=== PATIENT | female | born 1970 | race Caucasian/White ===

== ENCOUNTER 2017-07-20 20:53 | Inpatient (IN) | payer OTHER ==
[~2017-07-20] VITALS: Ht 165.1 cm; Wt 57.2 kg
[~2017-07-20 20:53] MED LIST: EFFEXOR XR150 MG PO; FLOVENT 11120 INHALA IH; LEVOFLOXACIN750 MG PO; METHADONE10 MG/1 M1 PO; NICOTINE PATCH1 EAC1 TD; PROAIR HFA8.5 GM IH; SEROQUEL100 MG PO; TYLENOL EXTRA500 MG PO; VISTARIL50 MG PO; WELLBUTRIN75 MG PO; ZOFRAN4 MG PO
[2017-07-20 22:20] LABS: ADD MIUA? YES; BILIRUBIN NEGATIVE; BLOOD NEGATIVE; COLOR YELLOW ((YELLOW)); GLUCOSE (STRIP) NEGATIVE; KETONES NEGATIVE; LEUKOCYTES MODERATE; NITRITE NEGATIVE; PROTEIN (STRIP) NEGATIVE; SPECIFIC GRAVITY 1.025 (1.000-1.030); UROBILINOGEN 0.2 MG/DL (0.2-1.0)
[2017-07-20 22:26] LABS: BACTERIA RARE /HPF; CALCIUM OXALATE CRYSTALS 1+ /HPF; EPITHELIAL CELLS 1+ /HPF; MUCUS TRACE /LPF; UCUL ADDED? YES; WHITE BLOOD CELLS 15-20 /HPF (0-5)
[2017-07-20 22:43] LABS: EOSINOPHIL (%) 2.4 % (0-5); EOSINOPHIL COUNT 0.2 K/uL (0-0.3); HEMATOCRIT 37.6 % (36.0-46.0); IMMATURE GRANULOCYTE (%) 0.3 % (0.0-0.7); INSTRUMENT ABS NEUTROPHIL CT 5.9 K/uL; LYMPHOCYTE COUNT 2.1 K/uL (1.0-2.8); MEAN PLAT.VOLUME 9.9 uM^3 (9.5-12.4); MONOCYTE (%) 5.9 % (3-12); MONOCYTE COUNT 0.5 K/uL (0-0.8); NEUTROPHIL (%) 66.9 % (45-76); NEUTROPHIL COUNT 5.9 K/uL (1.8-6.4); PLATELET COUNT 197 K/uL (156-360); RBC DIS.WIDTH-CV 13.3 % (11.8-14.6); RBC DIS.WIDTH-SD 44.6 % (39-53); RED BLOOD COUNT 4.13 M/uL (3.80-5.20); WHITE BLOOD COUNT 8.8 K/uL (4.1-10.2)
[2017-07-20 22:51] LABS: CHLORIDE 102 mEq/L (99-109); POTASSIUM 4.2 mEq/L (3.7-5.4); SODIUM 138 mEq/L (136-147)
[2017-07-20 22:53] LABS: GLUCOSE 83 mg/dL (70-99)
[2017-07-20 22:54] LABS: ANION GAP 15 MEQ/L (2-14)
[2017-07-20 22:57] LABS: GFR ESTIMATE (CALCULATED) > 59 mL/min/
[2017-07-20 22:58] LABS: UREA NITROGEN (BUN) 15 mg/dL (9-23)
[2017-07-21 05:44] LABS: AMPHETAMINE NEGATIVE (500 ng/mL); BARBITURATES NEGATIVE (200 ng/mL); BENZODIAZEPINES NEGATIVE (150 ng/mL); COCAINE NEGATIVE (150 ng/mL); INTERNAL CONTROLS VALID? YES; METHADONE NEGATIVE (200 ng/mL); METHAMPHETAMINE NEGATIVE (500 ng/mL); OPIATES (MORPHINE) PRESUMPTIVE POSITIVE (100 ng/mL); OXYCODONE NEGATIVE (100 ng/mL); PHENCYCLIDINE NEGATIVE (25 ng/mL); PROPOXYPHENE NEGATIVE (300 ng/mL); THC CANNABINOIDS NEGATIVE (50 ng/mL); TRICYCLIC ANTIDEPRESSANTS NEGATIVE (300 ng/mL)
[2017-07-21 07:04] LABS: ADD MEDTOX COMMENT Y
[2017-07-21] MEDS ORDERED: XANAX0.5 MG PO (08:17)
[2017-07-21] MEDS ORDERED: SUBOXONE 8 MG-1 EAC2 SL (08:19)
[2017-07-21] MEDS ORDERED: WELLBUTRIN XL300 MG PO (09:25)
[2017-07-21 16:04] VITALS: BP 101/63
[2017-07-21 20:00] VITALS: BP 105/70
[2017-07-21 21:14] LABS: METH RESISTANT S AUREUS PCR NEGATIVE (NEGATIVE)
[2017-07-21 21:18] LABS: PROBE CHECK PASS; SPECIMEN PROCESSING CONTROL PASS
[2017-07-21 23:20] VITALS: BP 109/60
[2017-07-22 04:00] VITALS: BP 98/57
[2017-07-22 06:17] LABS: EOSINOPHIL (%) 3.8 % (0-5); EOSINOPHIL COUNT 0.2 K/uL (0-0.3); HEMATOCRIT 37.2 % (36.0-46.0); IMMATURE GRANULOCYTE (%) 0.2 % (0.0-0.7); INSTRUMENT ABS NEUTROPHIL CT 2.7 K/uL; LYMPHOCYTE COUNT 1.5 K/uL (1.0-2.8); MCH 29.7 PG (29.0-34.0); MCHC 31.7 G/DL (30.0-36.0); MCV 93.7 FL (83-99); MEAN PLAT.VOLUME 9.9 uM^3 (9.5-12.4); MONOCYTE (%) 8.3 % (3-12); MONOCYTE COUNT 0.4 K/uL (0-0.8); NEUTROPHIL (%) 56.9 % (45-76); NEUTROPHIL COUNT 2.7 K/uL (1.8-6.4); PLATELET COUNT 150 K/uL (156-360); RBC DIS.WIDTH-CV 13.1 % (11.8-14.6); RBC DIS.WIDTH-SD 45.1 % (39-53); RED BLOOD COUNT 3.97 M/uL (3.80-5.20); WHITE BLOOD COUNT 4.8 K/uL (4.1-10.2)
[2017-07-22 06:47] LABS: ANION GAP 7 MEQ/L (2-14); CHLORIDE 108 MEQ/L (99-109); GFR ESTIMATE (CALCULATED) > 59 mL/min/; GLUCOSE 86 mg/dL (70-99); MAGNESIUM 1.8 mg/dl (1.3-2.7); POTASSIUM 4.3 MEQ/L (3.7-5.4); SAMPLE HEMOLYSIS CHECK 0; SAMPLE ICTERIC CHECK 0; SAMPLE LIPEMIA CHECK 0; SODIUM 140 MEQ/L (136-147); UREA NITROGEN (BUN) 11 mg/dL (9-23)
[2017-07-22 08:23] VITALS: BP 99/59
[2017-07-22 12:18] VITALS: BP 101/67
[2017-07-22 15:29] VITALS: BP 100/68
[2017-07-22 20:00] VITALS: BP 112/77
[2017-07-22 23:13] VITALS: BP 84/48
[2017-07-23 03:25] VITALS: BP 108/63
[2017-07-23 06:07] LABS: EOSINOPHIL (%) 4.3 % (0-5); EOSINOPHIL COUNT 0.2 K/uL (0-0.3); HEMATOCRIT 34.5 % (36.0-46.0); IMMATURE GRANULOCYTE (%) 0.4 % (0.0-0.7); INSTRUMENT ABS NEUTROPHIL CT 2.6 K/uL; LYMPHOCYTE COUNT 1.7 K/uL (1.0-2.8); MCV 90.8 FL (83-99); MEAN PLAT.VOLUME 9.9 uM^3 (9.5-12.4); MONOCYTE (%) 8.4 % (3-12); MONOCYTE COUNT 0.4 K/uL (0-0.8); NEUTROPHIL (%) 52.5 % (45-76); NEUTROPHIL COUNT 2.6 K/uL (1.8-6.4); PLATELET COUNT 175 K/uL (156-360); RBC DIS.WIDTH-CV 13.1 % (11.8-14.6); RBC DIS.WIDTH-SD 43.5 % (39-53); WHITE BLOOD COUNT 4.9 K/uL (4.1-10.2)
[2017-07-23 06:26] LABS: INTER. NORMALIZED RATIO 1.1; PROTHROMBIN TIME 11.8 SEC (10.2-12.9)
[2017-07-23 06:27] LABS: ANION GAP 8 MEQ/L (2-14); CHLORIDE 106 MEQ/L (99-109); GFR ESTIMATE (CALCULATED) > 59 mL/min/; GLUCOSE 78 mg/dL (70-99); MAGNESIUM 1.8 mg/dl (1.3-2.7); POTASSIUM 4.3 MEQ/L (3.7-5.4); SAMPLE HEMOLYSIS CHECK 0; SAMPLE ICTERIC CHECK 0; SAMPLE LIPEMIA CHECK 0; SODIUM 140 MEQ/L (136-147); UREA NITROGEN (BUN) 11 mg/dL (9-23)
[2017-07-23 06:29] LABS: PTT 36.5 SEC (25-37)
[2017-07-23 07:45] VITALS: BP 100/63
[2017-07-23 11:20] VITALS: BP 105/60
[2017-07-23 15:29] VITALS: BP 109/61
[2017-07-23 19:45] VITALS: BP 110/71
[2017-07-23 23:23] VITALS: BP 90/51
[2017-07-24 05:10] VITALS: BP 95/57
[2017-07-24 08:00] VITALS: BP 98/58
[2017-07-24 11:10] VITALS: BP 112/71
[2017-07-24] MEDS ORDERED: AUGMENTIN875 MG PO (11:22)
[2017-07-24] MEDS ORDERED: BACTRIM,SEPT1 TABLET PO (11:22)
[2017-07-24 16:08] VITALS: BP 113/69
[2017-07-24 16:55] VITALS: BP 102/72
== END 2017-07-24 20:10 | disposition home or self-care (01) | DRG 607 ==
LOC: EME 20:53 → RME 20:53 → EDOF 07-21 03:00 → ENRESERV 07-21 03:08 → 5WEST 07-21 14:44 → CANRESERV 07-21 16:09 → ENRESERV 07-21 16:09 → 5WEST 07-24 20:10
PROVIDERS: Internal Medicine; Physician Assistant Medical; Radiology Diagnostic Radiology
PROC: 0WB83ZX Excision of Chest Wall, Percutaneous Approach, Diagnostic (ICD-10-PCS; principal; 2017-07-23)
DX: R22.2 Localized swelling, mass and lump, trunk (principal); N63 Unspecified lump in breast; F11.20 Opioid dependence, uncomplicated; B18.2 Chronic viral hepatitis C; I95.9 Hypotension, unspecified; R00.0 Tachycardia, unspecified; R63.4 Abnormal weight loss; D64.9 Anemia, unspecified; E11.9 Type 2 diabetes mellitus without complications; E78.5 Hyperlipidemia, unspecified; F12.90 Cannabis use, unspecified, uncomplicated; F14.90 Cocaine use, unspecified, uncomplicated; F31.9 Bipolar disorder, unspecified; F43.10 Post-traumatic stress disorder, unspecified; M41.9 Scoliosis, unspecified; F41.9 Anxiety disorder, unspecified; J45.909 Unspecified asthma, uncomplicated; K21.9 Gastro-esophageal reflux disease without esophagitis; M19.90 Unspecified osteoarthritis, unspecified site; M25.511 Pain in right shoulder; M54.9 Dorsalgia, unspecified; F17.210 Nicotine dependence, cigarettes, uncomplicated; Z22.322 Carrier or suspected carrier of Methicillin resistant Staphylococcus aureus; Z82.3 Family history of stroke; Z83.3 Family history of diabetes mellitus; Z86.73 Personal history of transient ischemic attack (TIA), and cerebral infarction without residual deficits; Z91.81 History of falling
CPT/HCPCS: 71260; 77012; 80048; 80202; 81003; 83605; 83735; 84999; 85025; 85610; 85730; 87040; 87070; 87075; 87077; 87086; 87116; 87147; 87186; 87205; 87206; 87641; 88305; 88342 TC; 93970; 99281; 99285; J0295; J0574; J0692; J1200; J1650; J1885; J2405; J3010; J3370; J7030; J7050; S0030